=== PATIENT | female | born 1940 | race Caucasian/White ===

== ENCOUNTER 2020-08-15 15:43 | Observation (INO) ==
[2020-08-15] MEDS ORDERED: 0.9 % Sodium Chloride 1,000 ML IVC ONE (16:16)
[2020-08-15 17:09] LABS: Basophils % 0.4 %; Eosinophils # 0.1 K/mcL (0.0-0.6); Eosinophils % 1.1 %; Hematocrit 36.5 % (35.3-44.9); Hemoglobin 11.8 g/dL (11.5-15.4); Immature Granulocytes % 0.2 % (0-4); Lymphocytes # 1.6 K/mcL (0.6-4.6); Lymphocytes % 28.8 %; Mean Corpuscular HGB Conc 32.3 g/dL (31.6-35.5); Mean Corpuscular Hemoglobin 31.7 pg (28.0-33.3); Mean Corpuscular Volume 98.1 fL (83.0-100.0); Mean Platelet Volume 10.9 fL (9.4-12.4); Monocytes # 0.6 K/mcL (0.0-1.3); Monocytes % 11.4 %; Neutrophils # 3.2 K/mcL (1.6-8.9); Platelet Count 210 K/mcL (140-400); Red Blood Count 3.72 M/mcL (3.82-4.97); Red Cell Distribution Width 13.7 % (11.5-14.5); Segmented Neutrophils % 58.1 %; White Blood Count 5.5 K/mcL (4.3-11.1)
[2020-08-15 17:22] LABS: Bacteria,Urine Few per hpf (None-Few); Bilirubin,Urine Negative (Negative); Blood,Urine Negative (Negative); Clarity,Urine Clear (Clear); Color,Urine Light-Yellow (Yellow); Glucose,Urine (UA) Normal (Normal); Ketones,Urine Negative (Negative); Leukocyte Esterase,Urine Small (Negative); Nitrite,Urine Positive (Negative); PH,Urine 6.5 pH Units (5.0-8.0); Protein,Urine 30 mg/dL (Neg-Trace); RBC,Urine 0-3 per hpf (0-3); Urobilinogen,Urine Normal (Normal)
[2020-08-15 17:29] LABS: Amphetamine Screen,Urine Negative ng/mL (Cutoff=1000); Barbiturate Screen,Urine Negative ng/mL (Cutoff=200); Benzodiazepines Screen,Urine Negative ng/mL (Cutoff=200); Cannabinoid Screen,Urine Negative ng/mL (Cutoff = 50); Cocaine Screen,Urine Negative ng/mL (Cutoff= 300); Opiate Screen,Urine Negative ng/mL (Cutoff=300); Phencyclidine Screen,Urine Negative ng/mL (Cutoff=25)
[2020-08-15 17:31] LABS: Alanine Aminotransferase 16 Units/L (7-52); Albumin 4.1 g/dL (3.5-5.7); Albumin/Globulin Ratio 1.5 (1.1-2.2); Alkaline Phosphatase 61 Units/L (34-104); Aspartate Amino Transferase 19 Units/L (13-39); BUN/Creatinine Ratio 28 (6-26); Bilirubin,Indirect 0.3 mg/dL (0.0-1.0); Bilirubin,Total 0.3 mg/dL (0.3-1.0); Blood Urea Nitrogen 23 mg/dL (8-23); Calcium 9.1 mg/dL (8.6-10.3); Carbon Dioxide 24 mEq/L (23-29); Chloride 105 mEq/L (98-107); Globulin 2.8 g/dL (2.4-3.5); Glucose 92 mg/dL (70-105); Osmolality,Calculated 293 (280-300); Potassium 3.7 mEq/L (3.5-5.1); Sodium 140 mEq/L (136-145); Total Protein 6.9 g/dL (6.4-8.9); Troponin I < 0.03 ng/mL (< 0.04); eGFR For African Americans > 60 (> 60); eGFR For Non-African Americans > 60 (> 60)
[2020-08-15] MEDS ORDERED: cephALEXin 500 MG CAPSULE PO STA (18:08)
[2020-08-15] MEDS ORDERED: Ondansetron 4 MG/2 ML VIAL IVP ONE (18:12)
[2020-08-15 19:12] VITALS: BP 170/69
[2020-08-15] MEDS ORDERED: cefTRIAXone 1,000 MG in Water for inj. (sterile) 10 ML IVP ONE (19:14)
[2020-08-15] MEDS ORDERED: Naloxone 0.4 MG/ML INJ IVP PRN (21:11)
[2020-08-15] MEDS ORDERED: Acetaminophen 325 MG TABLET PO PRN (21:11)
[2020-08-15] MEDS ORDERED: *HR* Promethazine 25 MG/ML VIAL IVP PRN (21:11)
[2020-08-15] MEDS ORDERED: 0.9 % Sodium Chloride 1,000 ML IVC SCH (21:15)
[2020-08-16] MEDS ORDERED: cefTRIAXone 1,000 MG in 0.9 % Sodium Chloride Mini Bag 100 ML IVPB SCH (09:00)
== END 2020-08-15 22:30 | disposition left against medical advice (07) ==
LOC: EMEROOARM 15:43 → 3BNU 15:43
PROVIDERS: ADMIT Internal Medicine; ATTEND Internal Medicine

== ENCOUNTER 2021-07-07 10:05 | Inpatient (IN) ==
[2021-07-07 10:58] LABS: Basophils % 0.3 %; Eosinophils % 0.7 %; Hematocrit 35.9 % (35.3-44.9); Hemoglobin 11.4 g/dL (11.5-15.4); Immature Granulocytes % 0.2 % (0-4); Lymphocytes # 1.3 K/mcL (0.6-4.6); Lymphocytes % 21.8 %; Mean Corpuscular HGB Conc 31.8 g/dL (31.6-35.5); Mean Corpuscular Hemoglobin 31.1 pg (28.0-33.3); Mean Corpuscular Volume 97.8 fL (83.0-100.0); Mean Platelet Volume 10.5 fL (9.4-12.4); Monocytes # 0.7 K/mcL (0.0-1.3); Monocytes % 11.9 %; Neutrophils # 3.8 K/mcL (1.6-8.9); Platelet Count 217 K/mcL (140-400); Red Blood Count 3.67 M/mcL (3.82-4.97); Segmented Neutrophils % 65.1 %; White Blood Count 5.9 K/mcL (4.3-11.1)
[2021-07-07 11:33] LABS: Thyroid Stimulating Hormone 1.518 mcIU/mL (0.340-5.600)
[2021-07-07 11:34] LABS: Acetaminophen 14 mcg/mL (10-20); Alanine Aminotransferase 21 Units/L (7-52); Albumin 4.2 g/dL (3.5-5.7); Albumin/Globulin Ratio 1.4 (1.1-2.2); Alkaline Phosphatase 65 Units/L (34-104); Aspartate Amino Transferase 25 Units/L (13-39); BUN/Creatinine Ratio 21 (6-26); Bilirubin,Direct 0.2 mg/dL (0.0-0.2); Bilirubin,Indirect 0.4 mg/dL (0.0-1.0); Bilirubin,Total 0.6 mg/dL (0.3-1.0); Blood Urea Nitrogen 37 mg/dL (8-23); Calcium 9.4 mg/dL (8.6-10.3); Carbon Dioxide 22 mEq/L (23-29); Chloride 104 mEq/L (98-107); Cholesterol 228 mg/dL (< 200); Ethanol < 10 mg/dL (Less than 10); Globulin 2.9 g/dL (2.4-3.5); Glucose 101 mg/dL (70-105); HDL Cholesterol 57 mg/dL (40-59); LDL Cholesterol,Calculated 145 mg/dL (< 100); Osmolality,Calculated 293 (280-300); Potassium 4.1 mEq/L (3.5-5.1); Salicylate < 2.5 mg/dL (15.0-30.0); Sodium 137 mEq/L (136-145); Total Protein 7.1 g/dL (6.4-8.9); Triglycerides 128 mg/dL (< 150); eGFR For African Americans 34 (> 60); eGFR For Non-African Americans 28 (> 60)
[2021-07-07] MEDS ORDERED: 0.9 % Sodium Chloride 1,000 ML IVC ONE (11:36)
[2021-07-07 11:40] LABS: Bacteria,Urine Moderate per hpf (None-Few); Bilirubin,Urine Negative (Negative); Blood,Urine Negative (Negative); Clarity,Urine Clear (Clear); Color,Urine Colorless (Yellow); Glucose,Urine (UA) Normal (Normal); Hyaline Casts,Urine Few per lpf (None Seen); Ketones,Urine Negative (Negative); Leukocyte Esterase,Urine Moderate (Negative); Nitrite,Urine Negative (Negative); Protein,Urine Negative (Neg-Trace); Specific Gravity,Urine 1.008 (1.010-1.025); Squamous Epithelial Cell,Urine Few per hpf (None-Few); Urobilinogen,Urine Normal (Normal); WBC,Urine 15-30 per hpf (0-3)
[2021-07-07 11:43] LABS: Amphetamine Screen,Urine Negative ng/mL (Cutoff=1000); Barbiturate Screen,Urine Negative ng/mL (Cutoff=200); Benzodiazepines Screen,Urine Negative ng/mL (Cutoff=200); Cannabinoid Screen,Urine Negative ng/mL (Cutoff = 50); Cocaine Screen,Urine Negative ng/mL (Cutoff= 300); Opiate Screen,Urine Negative ng/mL (Cutoff=300); Phencyclidine Screen,Urine Negative ng/mL (Cutoff=25)
[2021-07-07] MEDS ORDERED: Sulfamethoxazole/Trimeth DS 1 EACH TABLET PO ONE (12:12)
[2021-07-07] MEDS ORDERED: Fosfomycin Tromethamine 3 GM Packet PO ONE (13:00)
[2021-07-07] MEDS ORDERED: *HR* LORazepam 2 MG/ML VIAL IVP ONE (13:08)
[2021-07-07 15:21] LABS: Calcium 8.4 mg/dL (8.6-10.3); Potassium 3.5 mEq/L (3.5-5.1)
[2021-07-07] MEDS ORDERED: Naloxone 0.4 MG/ML INJ IVP PRN (17:16)
[2021-07-07] MEDS ORDERED: Ondansetron 4 MG/2 ML VIAL IVP PRN (17:16)
[2021-07-07] MEDS ORDERED: Aspirin 325 MG TABLET PO ONE (18:22)
[2021-07-07] MEDS ORDERED: QUEtiapine Fumarate 25 MG TABLET PO SCH (21:00)
[2021-07-07] MEDS: 0.9 % Sodium Chloride 1,000 ML IVC SCH (21:57)
[2021-07-08 00:18] LABS: Estimated Average Glucose 123 mg/dl; Hemoglobin A1C 5.9 %
[2021-07-08 04:10] VITALS: TEMP 97.6
[2021-07-08 05:36] LABS: Protein/Creatinine Ratio,Urine 0.18 mg/mg (0.00-0.20); Sodium, Urine 94.7 mEq/L
[2021-07-08 06:04] LABS: Basophils % 0.5 %; Eosinophils # 0.1 K/mcL (0.0-0.6); Eosinophils % 2.3 %; Hematocrit 32.4 % (35.3-44.9); Hemoglobin 10.2 g/dL (11.5-15.4); Lymphocytes # 1.6 K/mcL (0.6-4.6); Lymphocytes % 36.1 %; Mean Corpuscular HGB Conc 31.5 g/dL (31.6-35.5); Mean Corpuscular Hemoglobin 30.8 pg (28.0-33.3); Mean Corpuscular Volume 97.9 fL (83.0-100.0); Mean Platelet Volume 10.8 fL (9.4-12.4); Monocytes # 0.5 K/mcL (0.0-1.3); Monocytes % 12.5 %; Neutrophils # 2.1 K/mcL (1.6-8.9); Platelet Count 188 K/mcL (140-400); Red Blood Count 3.31 M/mcL (3.82-4.97); Red Cell Distribution Width 14.5 % (11.5-14.5); Segmented Neutrophils % 48.6 %; White Blood Count 4.3 K/mcL (4.3-11.1)
[2021-07-08 06:25] LABS: BUN/Creatinine Ratio 30 (6-26); Blood Urea Nitrogen 27 mg/dL (8-23); Carbon Dioxide 21 mEq/L (23-29); Chloride 113 mEq/L (98-107); Glucose 86 mg/dL (70-105); Magnesium 2.1 mg/dL (1.6-2.6); Osmolality,Calculated 296 (280-300); Phosphorous 3.1 mg/dL (2.7-4.5); Potassium 3.8 mEq/L (3.5-5.1); Sodium 141 mEq/L (136-145); eGFR For African Americans > 60 (> 60); eGFR For Non-African Americans 60 (> 60)
[2021-07-08] MEDS: Aspirin Enteric Coated 81 MG Tablet PO SCH (09:11)
[2021-07-08] MEDS: Cholecalciferol (D-3) 1,000 UNIT (25MCG) TABLET PO SCH (09:11)
[2021-07-08] MEDS: 0.9 % Sodium Chloride 1,000 ML IVC SCH ×2 (09:12→16:29)
[2021-07-08 10:20] LABS: Calcium 7.8 mg/dL (8.6-10.3)
[2021-07-08] MEDS ORDERED: Haloperidol Lactate 5 MG/ML VIAL IM PRN ×2 (14:47→17:21)
[2021-07-08] MEDS: QUEtiapine Fumarate 25 MG TABLET PO SCH (21:08)
[2021-07-09] MEDS: 0.9 % Sodium Chloride 1,000 ML IVC SCH ×2 (01:39→11:30)
[2021-07-09 01:41] LABS: Basophils % 0.4 %; Eosinophils # 0.1 K/mcL (0.0-0.6); Hematocrit 31.6 % (35.3-44.9); Immature Granulocytes % 0.2 % (0-4); Lymphocytes # 1.9 K/mcL (0.6-4.6); Lymphocytes % 35.9 %; Mean Corpuscular HGB Conc 31.6 g/dL (31.6-35.5); Mean Corpuscular Hemoglobin 31.4 pg (28.0-33.3); Mean Corpuscular Volume 99.4 fL (83.0-100.0); Mean Platelet Volume 10.5 fL (9.4-12.4); Monocytes # 0.6 K/mcL (0.0-1.3); Monocytes % 10.4 %; Neutrophils # 2.8 K/mcL (1.6-8.9); Platelet Count 179 K/mcL (140-400); Red Blood Count 3.18 M/mcL (3.82-4.97); Red Cell Distribution Width 14.4 % (11.5-14.5); Segmented Neutrophils % 51.1 %; White Blood Count 5.4 K/mcL (4.3-11.1)
[2021-07-09 02:05] LABS: BUN/Creatinine Ratio 24 (6-26); Blood Urea Nitrogen 17 mg/dL (8-23); Calcium 8.2 mg/dL (8.6-10.3); Carbon Dioxide 20 mEq/L (23-29); Chloride 113 mEq/L (98-107); Glucose 89 mg/dL (70-105); Osmolality,Calculated 291 (280-300); Potassium 3.6 mEq/L (3.5-5.1); Sodium 140 mEq/L (136-145); eGFR For African Americans > 60 (> 60); eGFR For Non-African Americans > 60 (> 60)
[2021-07-09 03:12] VITALS: BP 160/70; PULSE 58; O2SAT 94
[2021-07-09] MEDS: Aspirin Enteric Coated 81 MG Tablet PO SCH (08:02)
[2021-07-09] MEDS: Cholecalciferol (D-3) 1,000 UNIT (25MCG) TABLET PO SCH (08:02)
[2021-07-09] MEDS: QUEtiapine Fumarate 25 MG TABLET PO SCH (08:02)
[2021-07-09] MEDS ORDERED: hydroCHLOROthiazide 25 MG TABLET PO SCH (09:00)
[2021-07-09] MEDS ORDERED: amLODIPine 5 MG TABLET PO SCH (09:00)
== END 2021-07-09 17:06 | disposition home health service (06) | DRG 682 ==
LOC: 3BNU 10:05 → EMEROOARM 10:05 → 3BNU 20:30
PROVIDERS: ADMIT Student in an Organized Health Care Education/Training Program; ATTEND Student in an Organized Health Care Education/Training Program

== ENCOUNTER 2022-01-24 12:42 | Inpatient (IN) ==
[2022-01-24 13:42] LABS: Bacteria,Urine Moderate per hpf (None-Few); Bilirubin,Urine Negative (Negative); Blood,Urine Negative (Negative); Clarity,Urine Turbid (Clear); Color,Urine Light-Yellow (Yellow); Glucose,Urine (UA) Normal (Normal); Hyaline Casts,Urine Few per lpf (None Seen); Ketones,Urine 10 mg/dL (Negative); Leukocyte Esterase,Urine Large (Negative); Mucus,Urine Few per lpf (None-Few); Nitrite,Urine Positive (Negative); PH,Urine 6.5 pH Units (5.0-8.0); Protein,Urine Trace mg/dL (Neg-Trace); Specific Gravity,Urine 1.015 (1.010-1.025); Squamous Epithelial Cell,Urine Moderate per hpf (None-Few); Urobilinogen,Urine Normal (Normal); WBC,Urine TNTC per hpf (0-3)
[2022-01-24 13:49] LABS: Amphetamine Screen,Urine Negative ng/mL (Cutoff=1000); Barbiturate Screen,Urine Negative ng/mL (Cutoff=200); Benzodiazepines Screen,Urine Negative ng/mL (Cutoff=200); Cannabinoid Screen,Urine Negative ng/mL (Cutoff = 50); Cocaine Screen,Urine Negative ng/mL (Cutoff= 300); Opiate Screen,Urine Negative ng/mL (Cutoff=300); Phencyclidine Screen,Urine Negative ng/mL (Cutoff=25)
[2022-01-24 14:20] LABS: Alanine Aminotransferase 13 Units/L (7-52); Albumin 3.9 g/dL (3.5-5.7); Albumin/Globulin Ratio 1.3 (1.1-2.2); Alkaline Phosphatase 63 Units/L (34-104); Aspartate Amino Transferase 15 Units/L (13-39); BUN/Creatinine Ratio 24 (6-26); Bilirubin,Indirect 0.5 mg/dL (0.0-1.0); Bilirubin,Total 0.5 mg/dL (0.3-1.0); Blood Urea Nitrogen 21 mg/dL (8-23); Calcium 9.1 mg/dL (8.6-10.3); Carbon Dioxide 20 mEq/L (23-29); Chloride 106 mEq/L (98-107); Ethanol < 10 mg/dL (Less than 10); Glucose 134 mg/dL (70-105); Osmolality,Calculated 291 (280-300); Potassium 3.5 mEq/L (3.5-5.1); Sodium 138 mEq/L (136-145); Total Protein 6.9 g/dL (6.4-8.9); Troponin I < 0.03 ng/mL (< 0.04); eGFR For African Americans > 60 (> 60); eGFR For Non-African Americans > 60 (> 60)
[2022-01-24 14:31] LABS: Basophils % 0.3 %; Eosinophils % 0.6 %; Hematocrit 35.1 % (35.3-44.9); Hemoglobin 11.2 g/dL (11.5-15.4); Immature Granulocytes % 0.3 % (0-4); Lymphocytes # 1.1 K/mcL (0.6-4.6); Lymphocytes % 15.8 %; Mean Corpuscular HGB Conc 31.9 g/dL (31.6-35.5); Mean Corpuscular Hemoglobin 30.5 pg (28.0-33.3); Mean Corpuscular Volume 95.6 fL (83.0-100.0); Mean Platelet Volume 11.6 fL (9.4-12.4); Monocytes # 0.6 K/mcL (0.0-1.3); Monocytes % 8.5 %; Neutrophils # 5.2 K/mcL (1.6-8.9); Platelet Count 165 K/mcL (140-400); Red Blood Count 3.67 M/mcL (3.82-4.97); Red Cell Distribution Width 14.7 % (11.5-14.5); Segmented Neutrophils % 74.5 %; White Blood Count 6.9 K/mcL (4.3-11.1)
[2022-01-24 14:32] LABS: Thyroid Stimulating Hormone 1.305 mcIU/mL (0.340-5.600)
[2022-01-24] MEDS ORDERED: cefTRIAXone 1,000 MG in 0.9 % Sodium Chloride Mini Bag 100 ML IVPB STA (16:20)
[2022-01-24] MEDS ORDERED: Ondansetron 4 MG/2 ML VIAL IVP PRN (16:41)
[2022-01-24] MEDS ORDERED: Naloxone 0.4 MG/ML INJ IVP PRN (16:41)
[2022-01-24] MEDS ORDERED: Melatonin 3 MG TABLET PO PRN (16:41)
[2022-01-24] MEDS ORDERED: *HR* Dextrose 50 % in Water (Syg) 50 ML SYRINGE IVP PRN (16:46)
[2022-01-24] MEDS ORDERED: D5% in Water 1,000 ML IVC PRN (16:46)
[2022-01-24] MEDS ORDERED: Dextrose 4 GM Chewable Tablets PO PRN ×2 (16:46)
[2022-01-24] MEDS: Doxycycline 100 MG in 0.9 % Sodium Chloride Mini Bag 100 ML IVPB SCH (17:59)
[2022-01-24] MEDS: 0.9 % Sodium Chloride 1,000 ML IVC SCH (17:59)
[2022-01-24] MEDS: Insulin LISPRO 300 UNITS/3 ML VIAL SUBQ SCH ×2 (18:00→19:54)
[2022-01-24] MEDS: QUEtiapine Fumarate 25 MG TABLET PO SCH (19:53)
[2022-01-24] MEDS ORDERED: Haloperidol Lactate 5 MG/ML VIAL IVP ONE ×2 (21:13→21:40)
[2022-01-24] MEDS: Haloperidol Lactate 5 MG/ML VIAL IVP ONE (21:45)
[2022-01-25] MEDS: Haloperidol Lactate 5 MG/ML VIAL IVP ONE (00:17)
[2022-01-25] MEDS: Doxycycline 100 MG in 0.9 % Sodium Chloride Mini Bag 100 ML IVPB SCH ×2 (05:04→17:39)
[2022-01-25 06:21] LABS: Basophils % 0.6 %; Eosinophils # 0.1 K/mcL (0.0-0.6); Eosinophils % 1.9 %; Hematocrit 31.4 % (35.3-44.9); Immature Granulocytes % 0.2 % (0-4); Lymphocytes # 1.5 K/mcL (0.6-4.6); Lymphocytes % 32.3 %; Mean Corpuscular HGB Conc 31.8 g/dL (31.6-35.5); Mean Corpuscular Hemoglobin 30.5 pg (28.0-33.3); Mean Corpuscular Volume 95.7 fL (83.0-100.0); Mean Platelet Volume 10.7 fL (9.4-12.4); Monocytes # 0.6 K/mcL (0.0-1.3); Monocytes % 12.4 %; Neutrophils # 2.5 K/mcL (1.6-8.9); Platelet Count 183 K/mcL (140-400); Red Blood Count 3.28 M/mcL (3.82-4.97); Red Cell Distribution Width 14.8 % (11.5-14.5); Segmented Neutrophils % 52.6 %; White Blood Count 4.8 K/mcL (4.3-11.1)
[2022-01-25 06:40] LABS: BUN/Creatinine Ratio 18 (6-26); Blood Urea Nitrogen 13 mg/dL (8-23); Calcium 8.5 mg/dL (8.6-10.3); Carbon Dioxide 22 mEq/L (23-29); Chloride 111 mEq/L (98-107); Glucose 99 mg/dL (70-105); Magnesium 2.1 mg/dL (1.6-2.6); Osmolality,Calculated 292 (280-300); Potassium 3.5 mEq/L (3.5-5.1); Sodium 141 mEq/L (136-145); eGFR For African Americans > 60 (> 60); eGFR For Non-African Americans > 60 (> 60)
[2022-01-25] MEDS: Insulin LISPRO 300 UNITS/3 ML VIAL SUBQ SCH ×4 (08:15→20:48)
[2022-01-25] MEDS: 0.9 % Sodium Chloride 1,000 ML IVC SCH (09:23)
[2022-01-25] MEDS: QUEtiapine Fumarate 25 MG TABLET PO SCH ×2 (09:24→20:47)
[2022-01-25] MEDS: hydroCHLOROthiazide 25 MG TABLET PO SCH (09:24)
[2022-01-25] MEDS: Furosemide 20 MG TABLET PO SCH (09:24)
[2022-01-25] MEDS: amLODIPine 5 MG TABLET PO SCH (09:24)
[2022-01-25] MEDS: *HR* Enoxaparin 40 MG/0.4 ML SYRINGE SQ SCH (14:27)
[2022-01-25] MEDS: cefTRIAXone 2,000 MG in 0.9 % Sodium Chloride 20 ML IVP SCH (17:39)
[2022-01-26] MEDS: Doxycycline 100 MG in 0.9 % Sodium Chloride Mini Bag 100 ML IVPB SCH ×2 (05:34→16:11)
[2022-01-26] MEDS: *HR* Enoxaparin 40 MG/0.4 ML SYRINGE SQ SCH (05:34)
[2022-01-26 07:44] LABS: Hemoglobin 11.2 g/dL (11.5-15.4); Mean Corpuscular Hemoglobin 30.4 pg (28.0-33.3); Mean Platelet Volume 11.4 fL (9.4-12.4)
[2022-01-26 07:45] LABS: Hematocrit 34.9 % (35.3-44.9); Immature Platelets 4.9 % (1.1-6.1); Mean Corpuscular HGB Conc 32.1 g/dL (31.6-35.5); Mean Corpuscular Volume 94.8 fL (83.0-100.0); Platelet Count 177 K/mcL (140-400); Red Blood Count 3.68 M/mcL (3.82-4.97); Red Cell Distribution Width 14.6 % (11.5-14.5); Segmented Neutrophils % 71.4 %; White Blood Count 5.7 K/mcL (4.3-11.1)
[2022-01-26 07:46] LABS: Basophils % 0.3 %; Eosinophils # 0.1 K/mcL (0.0-0.6); Eosinophils % 1.4 %; Immature Granulocytes % 0.2 % (0-4); Monocytes # 0.5 K/mcL (0.0-1.3); Monocytes % 8.7 %; Neutrophils # 4.1 K/mcL (1.6-8.9)
[2022-01-26 08:37] LABS: BUN/Creatinine Ratio 11 (6-26); Blood Urea Nitrogen 8 mg/dL (8-23); Carbon Dioxide 22 mEq/L (23-29); Chloride 106 mEq/L (98-107); Glucose 134 mg/dL (70-105); Osmolality,Calculated 288 (280-300); Potassium 3.3 mEq/L (3.5-5.1); Sodium 139 mEq/L (136-145); eGFR For African Americans > 60 (> 60); eGFR For Non-African Americans > 60 (> 60)
[2022-01-26] MEDS: Insulin LISPRO 300 UNITS/3 ML VIAL SUBQ SCH ×4 (09:55→21:03)
[2022-01-26] MEDS: Furosemide 20 MG TABLET PO SCH (09:57)
[2022-01-26] MEDS: hydroCHLOROthiazide 25 MG TABLET PO SCH (09:57)
[2022-01-26] MEDS: amLODIPine 5 MG TABLET PO SCH (09:59)
[2022-01-26] MEDS: Aspirin 81 MG TAB.CHEW PO SCH (09:59)
[2022-01-26] MEDS: QUEtiapine Fumarate 25 MG TABLET PO SCH ×2 (09:59→21:13)
[2022-01-26] MEDS ORDERED: Acetaminophen 325 MG TABLET PO PRN (10:34)
[2022-01-26] MEDS: haloperidoL 1 MG TABLET PO PRN ×2 (14:05→21:14)
[2022-01-26] MEDS: cefTRIAXone 2,000 MG in 0.9 % Sodium Chloride 20 ML IVP SCH (16:12)
[2022-01-26] MEDS ORDERED: *HR* LORazepam 2 MG/ML VIAL IVP ONE (16:54)
[2022-01-27 05:44] LABS: Basophils % 0.4 %; Eosinophils # 0.2 K/mcL (0.0-0.6); Eosinophils % 2.8 %; Hematocrit 37.1 % (35.3-44.9); Hemoglobin 11.6 g/dL (11.5-15.4); Lymphocytes # 1.4 K/mcL (0.6-4.6); Lymphocytes % 25.3 %; Mean Corpuscular HGB Conc 31.3 g/dL (31.6-35.5); Mean Corpuscular Volume 95.9 fL (83.0-100.0); Mean Platelet Volume 10.9 fL (9.4-12.4); Monocytes # 0.7 K/mcL (0.0-1.3); Monocytes % 13.1 %; Neutrophils # 3.2 K/mcL (1.6-8.9); Platelet Count 213 K/mcL (140-400); Red Blood Count 3.87 M/mcL (3.82-4.97); Red Cell Distribution Width 14.6 % (11.5-14.5); Segmented Neutrophils % 58.4 %; White Blood Count 5.4 K/mcL (4.3-11.1)
[2022-01-27] MEDS: Doxycycline 100 MG in 0.9 % Sodium Chloride Mini Bag 100 ML IVPB SCH (05:46)
[2022-01-27] MEDS: *HR* Enoxaparin 40 MG/0.4 ML SYRINGE SQ SCH (05:46)
[2022-01-27 06:44] VITALS: BP 186/75; PULSE 82; TEMP 97.9; O2SAT 93
[2022-01-27 06:54] LABS: BUN/Creatinine Ratio 16 (6-26); Blood Urea Nitrogen 12 mg/dL (8-23); Calcium 9.4 mg/dL (8.6-10.3); Carbon Dioxide 23 mEq/L (23-29); Chloride 104 mEq/L (98-107); Glucose 99 mg/dL (70-105); Magnesium 2.1 mg/dL (1.6-2.6); Osmolality,Calculated 286 (280-300); Potassium 3.5 mEq/L (3.5-5.1); Sodium 138 mEq/L (136-145); eGFR For African Americans > 60 (> 60); eGFR For Non-African Americans > 60 (> 60)
[2022-01-27] MEDS: hydroCHLOROthiazide 25 MG TABLET PO SCH (08:15)
[2022-01-27] MEDS: Furosemide 20 MG TABLET PO SCH (08:15)
[2022-01-27] MEDS: amLODIPine 5 MG TABLET PO SCH (08:15)
[2022-01-27] MEDS: Aspirin 81 MG TAB.CHEW PO SCH (08:15)
[2022-01-27] MEDS: QUEtiapine Fumarate 25 MG TABLET PO SCH (08:16)
[2022-01-27 09:20] LABS: Influenza A PCR Negative (Negative); Influenza B PCR Negative (Negative); Resp. Syncytial Virus PCR Negative (Negative)
[2022-01-27 09:21] LABS: SARS-CoV-2 by PCR (In House) Negative (Negative)
[2022-01-27] MEDS: Insulin LISPRO 300 UNITS/3 ML VIAL SUBQ SCH ×2 (12:11→12:12)
== END 2022-01-27 14:21 | DRG 193 ==
LOC: EMEROOARM 12:42 → 3ANU 12:42
PROVIDERS: ADMIT Internal Medicine; ATTEND Internal Medicine